=== PATIENT | male | born 1975 | race Caucasian/White ===

== ENCOUNTER 2016-12-05 13:11 | Emergency (ER) | payer BC, OTHER ==
[2016-12-05 13:15] VITALS: BP 118/77; TEMP 98.1
--- NOTE | 2016-12-05 13:18 | EDPHY ---
H & P Time Seen by Provider: 12/05/16 13:15 HPI/ROS: CHIEF COMPLAINT: 15 hours of hiccups. HISTORY OF PRESENT ILLNESS: The patient is a 41-year-old male who presents with 15 hours of intractable hiccups. They began suddenly with no preceding factors. He has no history of hiccups for such a long period of time. He denies fever, cough, recent sickness, chest pain, shortness of breath or other symptoms. REVIEW OF SYSTEMS: A 10 point review of systems was performed and is negative with the exception of the elements mentioned in the history of present illness. Source: Patient Exam Limitations: No limitations - Medical/Surgical History Other PMH: denies - Social History Additional Social History: , nonsmoker, drinks 3 alcoholic beverages per night. Works in [employer] security. - Physical Exam Exam: General Appearance: Alert, no acute distress. A focused physical exam was performed. Frequent hiccuping. VS reviewed. Respiratory: Lungs are clear to auscultation; no wheezes, rales, or rhonchi. Cardiovascular: Regular rate and rhythm; no murmur, rub, or gallop. Skin: Warm and dry, no rashes, normal color. Extremities: No lower extremity edema, no calf tenderness or swelling. Neurological: Alert and oriented. Moving all four extremities easily and equally. Psychiatric: Normal affect. Constitutional: Initial Vital Signs Temperature (C) 36.7 C 12/05/16 13:13 Heart Rate 82 12/05/16 13:13 Respiratory Rate 16 12/05/16 13:13 Blood Pressure 118/77 12/05/16 13:13 O2 Sat (%) 93 12/05/16 13:13 O2 Delivery Mode Room Air Allergies/Adverse Reactions: No Known Allergies Allergy (Unverified 12/05/16 13:13) Home Medications: Medication Instructions Recorded chlorproMAZINE HCL [Thorazine (*)] 25 mg PO TID PRN #12 tab 12/05/16 Medical Decision Making ED Course/Re-evaluation: 41-year-old male presents with 15 hours of intractable hiccups. He has no associated symptoms. I performed a focused physical exam that was negative. I first had the patient drink a mouthful of cold water slowly while holding his breath and plugging his ears and this cured his hiccups for the time being. 1340: Patient's hiccups are still gone. He does not have any evidence of infection. He has not had chest pain or any other signs or symptoms that would suggest myocardial infarction. He does report having had some recent heartburn symptoms. This could certainly be the cause of his hiccups and I am recommending that he start on an acid blocking medication, such as Pepcid. He is being given a prescription for Thorazine 25 mg three times daily, dispense 12, to use only if he develops intractable hiccups again. He understands that if that happens he can take this medication but that he should be re-evaluated also. He also understands the side effects of this antipsychotic medication that is sedating. Differential Diagnosis: I considered a differential diagnosis of hiccups that includes but is not limited to GERD, diaphragmatic irritation, infection, malignancy, and [place]. Departure - Departure Disposition: Home, Routine, Self-Care Clinical Impression: Intractable hiccups Condition: Good Instructions: Hiccups (ED), Gastroesophageal Reflux Disease (ED) Additional Instructions: Try taking [id number] Pepcid as instructed on the box. Return for any serious worsening of condition. Referrals: RAIZA HUNT [Non Staff and Non MD] - As per Instructions Prescriptions: chlorproMAZINE HCL [Thorazine (*)] 25 mg PO TID PRN #12 tab PRN Reason: Hiccups Report Scribed for: Raissa Amaya Report Scribed by: Dwaine Ferguson Date of Report: 12/05/16 Time of Report: 13:17 Physician Review and Approval Statement: 12/07/16 10:32 Portions of this chart were entered by a senior medical director. I personally performed the history, physical exam, and medical decision making. I have reviewed the chart and agree with the documentation, as evidenced by my signature.
[2016-12-05 14:05] VITALS: PULSE 86; RESP 18; O2SAT 96
== END 2016-12-05 14:00 | disposition home or self-care (01) ==
LOC: CED 13:11
DX: R06.6 Hiccough (principal)